=== PATIENT | male | born 1930 | race Caucasian/White ===

== ENCOUNTER 2016-07-30 10:29 | Outpatient (CLI) | payer MEDICARE, OTHER | END 2016-07-30 10:30 | disposition home or self-care (01) | DX: G20 Parkinson's disease (principal); R31.0 Gross hematuria; F17.200 Nicotine dependence, unspecified, uncomplicated; Z79.01 Long term (current) use of anticoagulants; I25.10 Atherosclerotic heart disease of native coronary artery without angina pectoris; Z86.73 Personal history of transient ischemic attack (TIA), and cerebral infarction without residual deficits; I48.2 Chronic atrial fibrillation; F10.29 Alcohol dependence with unspecified alcohol-induced disorder ==

== ENCOUNTER 2016-08-11 13:50 | Outpatient (CLI) | payer MEDICARE, OTHER | END 2016-08-11 13:51 | disposition home or self-care (01) | DX: I51.7 Cardiomegaly (principal); R06.2 Wheezing; R06.02 Shortness of breath; R91.8 Other nonspecific abnormal finding of lung field ==

== ENCOUNTER 2017-11-11 19:45 | Outpatient (CLI) | payer MEDICARE, OTHER ==
--- NOTE | 2017-11-11 20:50 | CT Preliminary Report ---
Exam: CT HEAD W/O IMPRESSION: Generalized age-related cortical atrophic changes without evidence of acute intracranial abnormality. [facility] SITE ID: [id number]
--- NOTE | 2017-11-11 21:05 | CT Report ---
EXAM: CT HEAD EXAM DATE: 11/11/2017 08:11 PM. CLINICAL HISTORY: Two falls one week ago. New-onset of slurred speech this morning. COMPARISON: 10/02/2014. TECHNIQUE: Multiaxial CT images were obtained from the foramen magnum to the vertex. Reformats: Coron al. IV contrast: None. In accordance with CT protocol optimization, one or more of the following dose reduction techniques w ere utilized for this exam: automated exposure control, adjustment of mA and/or KV based on patient s ize, or use of iterative reconstructive technique. FINDINGS: Parenchyma: No intraparenchymal hemorrhage. No evidence of mass, midline shift, or CT findings of acu te infarction. Diane-white differentiation is distinct. Diffuse chronic microangiopathic white matter changes are evident. Extraaxial Spaces: Normal for age. No subdural or epidural collections identified. Ventricles: The ventricles and cortical sulci are enlarged, consistent with age-related tissue loss. Sinuses and orbits: Imaged paranasal sinuses, orbits, and mastoids show no significant abnormality. Bones: No evidence of fracture or calvarial defect. Other: None. IMPRESSION: Generalized age-related cortical atrophic changes without evidence of acute intracranial abnormality. [facility] Referring Provider Line: [phone] SITE ID: [id number]
== END 2017-11-11 19:46 | disposition home or self-care (01) ==
LOC: DI 19:45
PROVIDERS: ATTEND Physician Assistant
DX: R47.81 Slurred speech (principal)
CPT/HCPCS: 70450

== ENCOUNTER 2018-04-09 20:54 | Emergency (ER) | payer MEDICARE, OTHER ==
--- NOTE | 2018-04-09 21:04 | ED Physician Documentation ---
History of Present Illness - Stated complaint Stated Complaint: R EAR SURGICAL BLEED - History obtained from History obtained from: Patient - History of Present Illness Timing: Enter time (16:00), Today Pain level now: 1 Improved by: no ameliorating factors Worsened by: no exacerbating factors - Additonal information Additional information: patient underwent surgery on his right ear at 4 PM today, had dime sized ca ncerous lesion excised from right ear, and a skin graft taken from his left forearm was then placed at the surgical site on right ear. Patient is on Eliquis for atrial fibrillation. He presents to the emergency department at this time for ongoing bleeding from the right ear bandage. Review of Systems Constitutional: reports: Reviewed and negative Ears: reports: Ear pain (mild post-operative discomfort) PD PAST MEDICAL HISTORY - Past Medical History Cardiovascular: Hypertension, [place], Atrial fibrillation Respiratory: None Endocrine/Autoimmune: None GI: Colon polyps : Retention HEENT: Other Psych: None Musculoskeletal: Osteoarthritis Derm: None - Past Surgical History Ortho: Other Cardiovascular: Coronary stent - Present Medications Home Medications: Ambulatory Orders Medication Instructions Recorded Confirmed Aspirin [Aspir 81] 1 mg ORAL DAILY 07/14/14 10/02/14 Finasteride [Proscar] 1 mg ORAL DAILY 07/14/14 10/02/14 Losartan [Cozaar] 12.5 mg ORAL DAILY 07/14/14 10/02/14 Simvastatin 1 mg ORAL DAILY 07/14/14 10/02/14 Tamsulosin [Flomax] 2 mg ORAL DAILY 07/14/14 10/02/14 Warfarin Sodium 1 mg ORAL DAILY 07/14/14 10/02/14 Rotigotine [Neupro] 1 each TD 10/02/14 10/02/14 - Allergies Allergies/Adverse Reactions: Allergies Allergy/AdvReac Type Severity Reaction Status Date / Time No Known Drug Allergies Allergy Verified 04/09/18 21:05 - Social History Does the pt smoke?: Yes Smoking Status: Current some day smoker Does the pt drink ETOH?: Yes Does the pt have substance abuse?: No PD ED PE NORMAL - Vitals Vital signs reviewed: Yes - General General: Alert and oriented X 3, No acute distress, Well developed/nourished PD ED PE EXPANDED - HEENT HEENT Visual: 1 - tenderness (Slow, steady bright red bleeding coming from underneath gauze sutured in place over surgical site) Results - Vitals Vitals: Oxygen O2 Source Room air PD MEDICAL DECISION MAKING - ED course Complexity details: considered differential, d/w patient - Consults Consults: Consulted (name) (Epifanio), Other (D/W Dr. Godfrey (covering for Dr. Awad); he agrees with plan, which is to place gel foam that has been moistened with txa over the surgical site and then apply a mild pressure dressing (mild so as not to compromise blood flow to the graft), d/c if hemostasis achieved but recontact him otherwise. These measures resulted in excellent hemostasis and after 30 minutes observation in ED, no evidence of bleeding into the dressing and thus d/c home. Instructed to contact office (Cam) in the morning to arrange for recheck in office.) Departure - Departure Disposition: 01 Home, Self Care Clinical Impression: Post-operative hemorrhage Condition: Good Instructions: ED Wound Check Post Op Bleeding Comments: Contact the zigzag elastic attacher's office in the morning; they will likely want to recheck the surgical site in the office. Discharge Date/Time: 04/09/18 23:04
[2018-04-09] MEDS ORDERED: TRANEXAMIC ACID 1,000 MG/10 ML VIAL NAS STA (21:39)
[2018-04-09 23:04] VITALS: BP 166/84
== END 2018-04-09 23:04 | disposition home or self-care (01) ==
LOC: ED 20:54
DX: H95.42 Postprocedural hemorrhage of ear and mastoid process following other procedure (principal); I48.91 Unspecified atrial fibrillation; I10 Essential (primary) hypertension; I25.2 Old myocardial infarction; F17.200 Nicotine dependence, unspecified, uncomplicated; Z79.01 Long term (current) use of anticoagulants; Z95.5 Presence of coronary angioplasty implant and graft
CPT/HCPCS: 99283; 99284

== ENCOUNTER 2019-01-07 08:00 | Outpatient (CLI) | payer MEDICARE, OTHER ==
[2019-01-07 12:47] LABS: EOSINOPHILS % (AUTO) 0.2 %; HGB - HEMOGLOBIN 14.2 g/dL (14.0-18.0); LYMPHOCYTES # (AUTO) 1.1 10^3/uL (1.5-3.5); LYMPHOCYTES % (AUTO) 23.9 %; MEAN CORPUSCULAR HEMOGLOBIN 31.9 pg (27.0-31.0); MEAN CORPUSCULAR HGB CONC 31.6 g/dL (32.0-36.0); MEAN CORPUSCULAR VOLUME 100.9 fL (80.0-94.0); MEAN PLATELET VOLUME 12.1 fL (7.4-11.4); MONOCYTES # (AUTO) 0.3 10^3/uL (0.0-1.0); MONOCYTES % (AUTO) 7.7 %; PLT - PLATELET COUNT 148 10^3/uL (130-450); RED BLOOD COUNT 4.45 10^6/uL (4.70-6.10); RED CELL DISTRIBUTION WIDTH 14.3 % (12.0-15.0); WHITE BLOOD COUNT 4.4 x10^3/uL (4.8-10.8)
[2019-01-07 13:26] LABS: ALBUMIN 3.5 g/dL (3.2-5.5); ALBUMIN/GLOBULIN RATIO 1.6 (1.0-2.2); ALKALINE PHOSPHATASE 75 IU/L (42-121); ALT ALANINE AMINOTRANSFERASE < 10 IU/L (10-60); AST ASPARTATE AMINOTRANSFERASE 17 IU/L (10-42); BILIRUBIN,TOTAL 1.1 mg/dL (0.2-1.0); BUN - BLOOD UREA NITROGEN 24 mg/dL (6-20); CALCIUM 8.5 mg/dL (8.5-10.3); CARBON DIOXIDE - CO2 26 mmol/L (21-32); CHLORIDE 110 mmol/L (101-111); CREATININE 1.1 mg/dL (0.6-1.2); GFR - MDRD 63 (>89); GLUCOSE 134 mg/dL (70-100); SODIUM 145 mmol/L (135-145); TOTAL PROTEIN 5.7 g/dL (6.7-8.2)
[2019-01-07 13:33] LABS: RBC MORPHOLOGY (MULTIPLE) 1+ ANISOCYTOSIS (NORMAL)
== END 2019-01-07 23:59 | disposition home or self-care (01) ==
LOC: LAB.WCP 08:00
PROVIDERS: ATTEND Family Medicine
DX: I10 Essential (primary) hypertension (principal); F03.91 Unspecified dementia, unspecified severity, with behavioral disturbance; G20 Parkinson's disease
CPT/HCPCS: 36415; 80053; 82607; 83921; 84443; 85025

== ENCOUNTER 2019-02-17 09:46 | Emergency (ER) | payer MEDICARE, OTHER ==
[2019-02-17 11:13] LABS: BASOPHILS % (AUTO) 0.2 %; HGB - HEMOGLOBIN 14.5 g/dL (14.0-18.0); LYMPHOCYTES # (AUTO) 0.7 10^3/uL (1.5-3.5); LYMPHOCYTES % (AUTO) 7.5 %; MEAN CORPUSCULAR HEMOGLOBIN 32.9 pg (27.0-31.0); MEAN CORPUSCULAR HGB CONC 32.9 g/dL (32.0-36.0); MEAN PLATELET VOLUME 11.7 fL (7.4-11.4); MONOCYTES # (AUTO) 0.7 10^3/uL (0.0-1.0); MONOCYTES % (AUTO) 7.8 %; NEUTROPHILS # (AUTO) 7.9 10^3/uL (1.5-6.6); PLT - PLATELET COUNT 155 10^3/uL (130-450); RED BLOOD COUNT 4.41 10^6/uL (4.70-6.10); RED CELL DISTRIBUTION WIDTH 14.5 % (12.0-15.0); WHITE BLOOD COUNT 9.4 x10^3/uL (4.8-10.8)
[2019-02-17 11:19] LABS: ALBUMIN 3.9 g/dL (3.2-5.5); ALBUMIN/GLOBULIN RATIO 1.5 (1.0-2.2); BILIRUBIN,TOTAL 1.8 mg/dL (0.2-1.0); CALCIUM 8.9 mg/dL (8.5-10.3); CREATININE 1.6 mg/dL (0.6-1.2); TOTAL PROTEIN 6.5 g/dL (6.7-8.2)
[2019-02-17] MEDS ORDERED: LIDOCAINE 2% URO-JET 5 ML SYRINGE UR STA ×2 (11:45→13:55)
[2019-02-17 12:39] LABS: BILIRUBIN,URINE NEGATIVE (NEGATIVE); GLUCOSE, URINE (UA) NEGATIVE (NEGATIVE); KETONES,URINE (UA) NEGATIVE (NEGATIVE); LEUKOCYTE ESTERASE, URINE NEGATIVE (NEGATIVE); NITRITE,URINE NEGATIVE (NEGATIVE); OCCULT BLOOD,URINE LARGE (NEGATIVE); PH,URINE 5.5 PH (5.0-7.5); PROTEIN,URINE NEGATIVE (NEGATIVE); UROBILINOGEN,URINE 0.2 (NORMAL) E.U./dL (NORMAL)
[2019-02-17 12:41] LABS: CLARITY,URINE CLEAR (CLEAR)
[2019-02-17 12:53] LABS: BACTERIA,URINE None Seen /HPF (None Seen); RBC,URINE TNTC /HPF (0-5); SQUAMOUS EPITHELIAL CELL,UR NONE SEEN (<= Few)
[2019-02-17] MEDS ORDERED: LORazepam 2 MG/ML VIAL IVP STA (14:45)
--- NOTE | 2019-02-17 17:04 | ED Physician Documentation ---
PD HPI MALE - Stated complaint Stated Complaint: UNABLE TO URINATE - Chief complaint Chief Complaint: UTI - History obtained from History obtained from: Patient, Family - History of Present Illness Timing - onset: Last night Timing - duration: Hours Timing - details: Gradual onset, Still present Associated symptoms: Unable to urinate, Abdominal pain Similar symptoms before: Has not had sx before Recently seen: Not recently seen - Additional information Additional information: 88-year-old male with enlarged prostate and bladder outlet obstruction symptoms has been incontinent of urine for some time now and he is last been checked with a postvoid residual of about 3 to 400 mL's. The patient indicates that last night he was not able to urinate at all and he has not had any output since. He usually is incontinent and voids a small amount of time. He indicates he has some lower abdominal discomfort but it is not horrible. Review of Systems Constitutional: denies: Fever, Chills, Myalgias, Fatigue Eyes: denies: Decreased vision Ears: denies: Ear pain Nose: denies: Congestion Respiratory: denies: Cough GI: reports: Abdominal Pain. denies: Nausea, Vomiting : reports: Unable to Void, Incontinent Skin: denies: Rash Musculoskeletal: denies: Neck pain, Back pain, Extremity pain Neurologic: denies: Generalized weakness, Focal weakness, Numbness PD PAST MEDICAL HISTORY - Past Medical History Cardiovascular: Hypertension, [place], Atrial fibrillation Respiratory: None Endocrine/Autoimmune: None GI: Colon polyps : Retention HEENT: Other Psych: None Musculoskeletal: Osteoarthritis Derm: None - Past Surgical History Past Surgical History: Yes Ortho: Other Cardiovascular: Coronary stent - Present Medications Home Medications: Ambulatory Orders Medication Instructions Recorded Confirmed Aspirin [Aspir 81] 1 mg ORAL DAILY 07/14/14 10/02/14 Finasteride [Proscar] 1 mg ORAL DAILY 07/14/14 10/02/14 Losartan [Cozaar] 12.5 mg ORAL DAILY 07/14/14 10/02/14 Tamsulosin [Flomax] 2 mg ORAL DAILY 07/14/14 10/02/14 Atorvastatin [Lipitor] 02/17/19 QUEtiapine [SEROquel] 02/17/19 - Allergies Allergies/Adverse Reactions: Allergies Allergy/AdvReac Type Severity Reaction Status Date / Time No Known Drug Allergies Allergy Verified 04/09/18 21:05 - Social History Does the pt smoke?: Yes Smoking Status: Current every day smoker Does the pt drink ETOH?: Yes Does the pt have substance abuse?: No - Immunizations Immunizations are current?: No - POLST Patient has POLST: No PD ED PE NORMAL - Vitals Vital signs reviewed: Yes (hypertensive mild ) - General General: No acute distress, Well developed/nourished - HEENT HEENT: Atraumatic, PERRL, EOMI - Neck Neck: Supple, no meningeal sign, No bony TTP - Cardiac Cardiac: RRR, No murmur - Respiratory Respiratory: No respiratory distress, Clear bilaterally - Abdomen Abdomen: Soft, Other (There is marked firm distention of the suprapubic area. The area is tender but not exquisit. ) - Back Back: No CVA TTP, No spinal TTP - Derm Derm: Normal color, Warm and dry, No rash - Extremities Extremities: No deformity, No edema - Neuro Neuro: Alert and oriented X 3, hand surgeon 2-12 intact, No motor deficit, No sensory deficit, Normal speech Eye Opening: Spontaneous Motor: Obeys Commands Verbal: Oriented GCS Score: 15 - Psych Psych: Normal mood, Normal affect Results - Vitals Vitals: Vital Signs - 24 hr 02/17/19 02/17/19 02/17/19 09:51 12:39 14:48 Temperature 36.3 C L 36.9 C Heart Rate 53 L 98 77 Respiratory 20 16 20 Rate Blood Pressure 149/70 H 164/71 H 133/60 H O2 Saturation 99 98 95 02/17/19 16:54 Temperature Heart Rate 55 L Respiratory 16 Rate Blood Pressure 115/84 H O2 Saturation 97 Oxygen O2 Source Room air - Labs Labs: Laboratory Tests 02/17/19 02/17/19 02/17/19 10:55 10:55 10:55 WBC 9.4 RBC 4.41 L Hgb 14.5 Hct 44.1 MCV 100.0 H MCH 32.9 H MCHC 32.9 RDW 14.5 Plt Count 155 MPV 11.7 H Neut # (Auto) 7.9 H Lymph # (Auto) 0.7 L [place] # (Auto) 0.7 Eos # (Auto) 0.0 Baso # (Auto) 0.0 Absolute Nucleated RBC 0.00 Nucleated RBC % 0.0 Sodium 145 Potassium 4.0 Chloride 109 Carbon Dioxide 27 Anion Gap 9.0 BUN 27 H Creatinine 1.6 H Estimated GFR (MDRD) 41 L Glucose 109 H Lactic Acid 1.1 Calcium 8.9 Total Bilirubin 1.8 H AST 15 ALT 11 Alkaline Phosphatase 92 Total Protein 6.5 L Albumin 3.9 Globulin 2.6 Albumin/Globulin Ratio 1.5 Lipase 18 L Urine Color Urine Clarity Urine pH Ur Specific [place] Urine Protein Urine Glucose (UA) Urine Ketones Urine Occult Blood Urine Nitrite Urine Bilirubin Urine Urobilinogen Ur Leukocyte Esterase Urine RBC Urine WBC Ur Squamous Epith Cells Urine Bacteria Ur Microscopic Review Urine Culture Comments 02/17/19 12:20 WBC RBC Hgb Hct MCV MCH MCHC RDW Plt Count MPV Neut # (Auto) Lymph # (Auto) [place] # (Auto) Eos # (Auto) Baso # (Auto) Absolute Nucleated RBC Nucleated RBC % Sodium Potassium Chloride Carbon Dioxide Anion Gap BUN Creatinine Estimated GFR (MDRD) Glucose Lactic Acid Calcium Total Bilirubin AST ALT Alkaline Phosphatase Total Protein Albumin Globulin Albumin/Globulin Ratio Lipase Urine Color BROWN Urine Clarity CLEAR Urine pH 5.5 Ur Specific [place] 1.020 Urine Protein NEGATIVE Urine Glucose (UA) NEGATIVE Urine Ketones NEGATIVE Urine Occult Blood LARGE H Urine Nitrite NEGATIVE Urine Bilirubin NEGATIVE Urine Urobilinogen 0.2 (NORMAL) Ur Leukocyte Esterase NEGATIVE Urine RBC TNTC H Urine WBC 0-3 Ur Squamous Epith Cells NONE SEEN Urine Bacteria None Seen Ur Microscopic Review INDICATED Urine Culture Comments NOT INDICATED PD MEDICAL DECISION MAKING - ED course Complexity details: reviewed old records, reviewed results, re-evaluated patient, considered differential, d/w patient, d/w family ED course: 88-year-old male with acute urinary retention has a markedly distended bladder palpable to his umbilicus. He has this bladder full of urine on bedside examination. A Yepez catheter is placed and 1300 mL's of dark brown urine is removed from the bladder. The RN discovered there is no balloon on the Yepez and attempts to replace it and this is met with an inability to place the Yepez catheter. Multiple attempts were made with multiple catheters and multiple people attempting. He does have some bleeding associated with this.After several hours and 4 separate sets of people attempting the Yepez catheter including myself Dr. Hinton is consulted in the case.The patient is much more comfortable after having 1300 mL's of urine removed from his bladder and after multiple attempts we have abandoned further attempts to place a catheter. Dr. Hinton has graciously agreed to care for the patient and recommends he come to his office at 9:30 AM in [place] tomorrow morning. He recommends in the meantime if the patient becomes uncomfortable again that he take an ambulance to [facility] where he could care for the patient in the emergency room there. The patient is given a dose of Cipro. Departure - Departure Disposition: 01 Home, Self Care Clinical Impression: Acute urinary retention Condition: Stable Instructions: ED Retention Urinary Male Follow-Up: Camacho Gates MD [Primary Care Provider] - Layton Hinton MD [Other] Comments: Today we were able to remove up about 1300 mL's of urine from the bladder and we expect José Miguel to be OK overnight. José Miguel may become uncomfortable again. If he becomes too uncomfortable the recommendation is for him to go to the emergency department at [facility]. He does have an appointment with Dr. Hinton at 9:30 AM tomorrow morning in [place]. Dr. Hinton has recommended José Miguel take a second dose of Tamsulosin.
[2019-02-17] MEDS ORDERED: CIPROFLOXACIN 250 MG TABLET PO STA (17:22)
[2019-02-17 18:19] VITALS: BP 120/78
== END 2019-02-17 18:10 | disposition home or self-care (01) ==
LOC: ED 09:46
DX: R33.9 Retention of urine, unspecified (principal); R10.30 Lower abdominal pain, unspecified; I10 Essential (primary) hypertension; F17.200 Nicotine dependence, unspecified, uncomplicated; Z79.82 Long term (current) use of aspirin
CPT/HCPCS: 36415; 51702; 51798; 80053; 81001; 83605; 83690; 85025; 96372; 99283; 99284; A9270; J2060; 81003; 87086

== ENCOUNTER 2019-03-16 02:21 | Outpatient (CLI) | payer MEDICARE, OTHER | END 2019-03-16 02:22 | disposition short-term general hospital (02) | LOC: EMS 02:21 | PROVIDERS: ATTEND Surgery | DX: R10.30 Lower abdominal pain, unspecified (principal); N48.89 Other specified disorders of penis | CPT/HCPCS: A0425; A0429; A0888 ==